=== PATIENT | female | born 1945 | race Caucasian/White ===

== ENCOUNTER → 2023-09-21 10:04 | Outpatient (REF) | payer MEDICARE, BC, SELFPAY | LOC: RAD 10:04 | PROVIDERS: ATTENDING PHYSICIAN Obstetrics & Gynecology; FAMILY PHYSICIAN Internal Medicine | DX: Z13.820 Encounter for screening for osteoporosis (principal); M81.0 Age-related osteoporosis without current pathological fracture | CPT/HCPCS: 77080 ==

== ENCOUNTER → 2023-10-14 11:42 | Outpatient (REF) | payer MEDICARE, BC, SELFPAY | LOC: WDC 11:42 | PROVIDERS: ATTENDING PHYSICIAN Obstetrics & Gynecology; FAMILY PHYSICIAN Internal Medicine | DX: Z12.31 Encounter for screening mammogram for malignant neoplasm of breast (principal) | CPT/HCPCS: 77063; 77067 ==

== ENCOUNTER → 2023-10-24 09:47 | Outpatient (REF) | payer MEDICARE, BC, SELFPAY | LOC: WDC 09:47 | PROVIDERS: ATTENDING PHYSICIAN Obstetrics & Gynecology; FAMILY PHYSICIAN Internal Medicine | DX: R92.8 Other abnormal and inconclusive findings on diagnostic imaging of breast (principal) | CPT/HCPCS: 77065 ==

== ENCOUNTER → 2023-10-28 06:32 | Outpatient (REF) | payer MEDICARE, BC, SELFPAY ==
--- NOTE | 2023-10-28 13:15 | OID.BR.INTR ---
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
- -
Date of Contact: 10/28/23
Met with patient. Patient given written information on navigator services and support services available at [facility]. Will follow up as needed per protocol.
== END ==
LOC: WDC 06:32
PROVIDERS: ATTENDING PHYSICIAN Obstetrics & Gynecology; FAMILY PHYSICIAN Internal Medicine
DX: R92.1 Mammographic calcification found on diagnostic imaging of breast (principal)
CPT/HCPCS: 88305; 19081; 76098; A4648

== ENCOUNTER → 2023-11-07 10:07 | Outpatient (REF) | payer MEDICARE, BC, SELFPAY | LOC: HWRAD 10:07 | PROVIDERS: ATTENDING PHYSICIAN Obstetrics & Gynecology; FAMILY PHYSICIAN Internal Medicine | DX: R10.2 Pelvic and perineal pain (principal) | CPT/HCPCS: 76830; 76856 ==

== ENCOUNTER → 2024-02-01 11:02 | Outpatient (REF) | payer MEDICARE, BC, SELFPAY ==
[2024-02-01 11:30] LABS: % Basophils 1.2 % (0-2); % Eosinophils 4.3 % (0-6); % Immature Granulocytes 0.2 % (0-0.5); % Lymphocytes 34.6 % (20.5-51.1); % Monocytes 9.3 % (1.7-9.3); % Neutrophils 50.4 % (42.2-75.2); Absolute Basophils 0.1 10^3/uL (0-0.2); Absolute Eosinophils 0.2 10^3/uL (0-0.7); Absolute Lymphocytes 1.7 10^3/uL (1.2-3.4); Absolute Monocytes 0.5 10^3/uL (0.1-0.6); Absolute Neutrophils 2.5 10^3/uL (1.4-6.5); Hematocrit 39.4 % (37.0-47.0); Hemoglobin 12.6 g/dL (12.0-16.0); Mean Corpuscular Hgb 30.7 pg (27.0-31.0); Mean Corpuscular Volume 96.1 fL (81.0-99.0); Mean Platelet Volume 9.2 fL (7.4-10.4); Nucleated Red Blood Cells % 0 %; Platelet Count 295 10^3/uL (130-400); Red Cell Dist. Width 13.2 % (11.5-14.5); White Blood Cell Count 4.9 10^3/uL (4.8-10.8)
[2024-02-01 11:36] LABS: Urine Albumin Negative (Neg - Trace); Urine Bilirubin Negative (Negative); Urine Character Clear (Clear); Urine Color Yellow; Urine Glucose Negative (Negative); Urine Ketone Negative (Negative); Urine Leukocyte Trace (Negative); Urine Nitrite Negative (Negative); Urine Occult Blood Negative (Negative); Urine Urobilinogen Negative (Neg - 1+)
[2024-02-01 11:58] LABS: Urine Squamous Cell 16-20 /LPF (Few)
[2024-02-01 12:00] LABS: Urine Red Blood Cell 0-2 /HPF (0-2); Urine White Cell 0-2 /HPF (0-5)
[2024-02-01 12:30] LABS: ALT (SGPT) 23 U/L (0-35); AST (SGOT) 32 U/L (14-36); Albumin 4.5 g/dl (3.5-5.0); Alkaline Phosphatase 60 U/L (38-126); Blood Urea Nitrogen 14 mg/dl (7-17); Calcium 9.5 mg/dl (8.4-10.2); Carbon Dioxide 27 mmol/L (22-30); Chloride 102 mmol/L (98-107); Glucose 91 mg/dl (70-99); HDL Cholesterol 63 mg/dl; LDL Cholesterol, Calculated 84 mg/dl; Potassium 4.2 mmol/L (3.5-5.1); Sodium 137 mmol/L (135-145); Total Bilirubin 0.4 mg/dl (0.2-1.3); Total Cholesterol 168 mg/dl (50-199); Total Protein 6.8 g/dl (6.3-8.2); Triglyceride 108 mg/dl (10-149); Very Low Density Lipoprotein 21 mg/dl (0-30); eGFR > 60.00
[2024-02-01 12:50] LABS: TSH 1.37 uIU/ml (0.47-4.68)
== END ==
LOC: REG 11:02
PROVIDERS: ATTENDING PHYSICIAN Internal Medicine
DX: E78.00 Pure hypercholesterolemia, unspecified (principal); M16.0 Bilateral primary osteoarthritis of hip; F41.8 Other specified anxiety disorders; R20.0 Anesthesia of skin; K58.1 Irritable bowel syndrome with constipation; E55.9 Vitamin D deficiency, unspecified; Z00.00 Encounter for general adult medical examination without abnormal findings
CPT/HCPCS: 36415; 80053; 80061; 81003; 81015; 82306; 84443; 85025

== ENCOUNTER → 2024-02-10 06:31 | Day surgery (SDC) | payer MEDICARE, BC, SELFPAY | LOC: GI 06:31 | PROVIDERS: ATTENDING PHYSICIAN Internal Medicine Gastroenterology | DX: Z12.11 Encounter for screening for malignant neoplasm of colon (principal); Z86.010 Personal history of colon polyps; D12.0 Benign neoplasm of cecum; D12.2 Benign neoplasm of ascending colon; D12.4 Benign neoplasm of descending colon | CPT/HCPCS: 45385; 88305 ==

== ENCOUNTER → 2024-03-09 17:45 | Outpatient (REF) | payer MEDICARE, BC, SELFPAY | LOC: RAD 17:45 | PROVIDERS: ATTENDING PHYSICIAN Podiatrist; FAMILY PHYSICIAN Internal Medicine | DX: M72.2 Plantar fascial fibromatosis (principal) | CPT/HCPCS: 73630 ==

== ENCOUNTER → 2024-08-08 14:02 | Outpatient (REF) | payer MEDICARE, BC, SELFPAY | LOC: RAD 14:02 | PROVIDERS: ATTENDING PHYSICIAN Physician Assistant | DX: R29.898 Other symptoms and signs involving the musculoskeletal system (principal); R20.2 Paresthesia of skin | CPT/HCPCS: 72110 ==

== ENCOUNTER → 2024-09-03 14:17 | Outpatient (REF) | payer MEDICARE, BC, SELFPAY | LOC: RAD 14:17 | PROVIDERS: ATTENDING PHYSICIAN Physician Assistant; FAMILY PHYSICIAN Internal Medicine | DX: R29.898 Other symptoms and signs involving the musculoskeletal system (principal); R20.2 Paresthesia of skin | CPT/HCPCS: 93922; 93925 ==

== ENCOUNTER → 2024-10-18 12:41 | Outpatient (REF) | payer MEDICARE, BC, SELFPAY | LOC: WDC 12:41 | PROVIDERS: ATTENDING PHYSICIAN Nurse Practitioner Family; FAMILY PHYSICIAN Internal Medicine | DX: Z12.31 Encounter for screening mammogram for malignant neoplasm of breast (principal) | CPT/HCPCS: 77063; 77067 ==

== ENCOUNTER → 2024-11-06 17:24 | Outpatient (REF) | payer MEDICARE, BC, SELFPAY | LOC: RAD 17:24 | PROVIDERS: ATTENDING PHYSICIAN Internal Medicine | DX: J45.41 Moderate persistent asthma with (acute) exacerbation (principal) | CPT/HCPCS: 71046 ==

== ENCOUNTER → 2024-11-15 13:00 | Outpatient (REF) | payer MEDICARE, BC, SELFPAY | LOC: HWEVLT 13:00 | PROVIDERS: ATTENDING PHYSICIAN Radiology Diagnostic Radiology | DX: I83.893 Varicose veins of bilateral lower extremities with other complications (principal) | CPT/HCPCS: 93970 ==

== ENCOUNTER 2025-01-09 06:59 | Day surgery (SDC) | payer MEDICARE, BC, SELFPAY ==
[2024-12-20 11:14] LABS: Hematocrit 37.1 % (37.0-47.0); Hemoglobin 12.4 g/dL (12.0-16.0); Mean Corp Hgb Conc. 33.4 g/dL (33.0-37.0); Mean Corpuscular Hgb 31.7 pg (27.0-31.0); Mean Corpuscular Volume 94.9 fL (81.0-99.0); Mean Platelet Volume 9.2 fL (7.4-10.4); Platelet Count 311 10^3/uL (130-400); Red Blood Cell Count 3.91 10^6/uL (4.20-5.40); White Blood Cell Count 4.1 10^3/uL (4.8-10.8)
[2024-12-20 11:25] LABS: ALT (SGPT) 21 U/L (0-35); AST (SGOT) 26 U/L (14-36); Albumin 4.2 g/dl (3.5-5.0); Alkaline Phosphatase 49 U/L (38-126); Blood Urea Nitrogen 12 mg/dl (7-17); Calcium 9.7 mg/dl (8.4-10.2); Carbon Dioxide 31 mmol/L (22-30); Chloride 105 mmol/L (98-107); Glucose 71 mg/dl (70-99); Potassium 3.8 mmol/L (3.5-5.1); Sodium 143 mmol/L (135-145); Total Bilirubin 0.4 mg/dl (0.2-1.3); Total Protein 6.7 g/dl (6.3-8.2); eGFR > 60.00
[2024-12-20 12:36] VITALS: BMI 25.9
[2024-12-20 13:19] LABS: Glycohemoglobin (HgbA1c) 5.9 % (4.0-5.6)
[2024-12-20 15:07] VITALS: BMI 25.9
--- NOTE | 2024-12-20 15:45 | CM ---
CM reviewed medical records. CM spoke with patient via phone. CM confirmed demographics. Patient lives independently with . Patient confirmed that she does not have a history of VN, SNF or DME. Patient confirmed that she has the patient
education list for required DME. Patient plans to stay overnight. CM encouraged patient to make an outpatient PT appointment at her chosen center on 01/11.
Patient would be agreeable to [facility] if needed on discharge. CM reinforced that patient discharge plan will be determined on POD #1.
CM encouraged hydration and bowel regimen pre-operatively.
CM provided CM contact information and will remain available as needed.
PLAN: home with outpatient PT.
--- NOTE | 2024-12-28 17:21 | CM ---
CM spoke with patient. SHe has multiple questions regarding her DME. CM discussed options.
Patient stated that she would like to make an appointment for outpatient PT at [facility] and is unable to make an appointment in time. CM emailed Holley Flores to assist patient with making an appointment.
--- NOTE | 2025-01-03 14:10 | CM ---
CM spoke with patient and reeducated on discharge plan. CM reinforced that patient will have outpatient PT after discharge and plan is NOT for home care. Patient understood and did not have further questions at this time.
[2025-01-09] VITALS (17 sets, daily range): BP systolic 94–149; BP diastolic 48–85; PULSE 82–87; O2SAT 99–100
[2025-01-09] MEDS: CELEBREX 200 MG PO (07:40)
[2025-01-09] MEDS: TYLENOL 650 MG PO ×4 (07:40→21:12)
[2025-01-09] MEDS: NORMOSOL-R/PLASMALYTE-A 1000 IV ×2 (08:01→11:32)
--- NOTE | 2025-01-09 09:08 | W.PN.ORTHO ---
Today's Communication / Plan
-
d/c when stable
Assessment
.
Distal Motor Intact: Yes
Dressing:
Clean, dry and intact.
Assessment:
Asthma-incentive spirometry-monitor O2 sats
Anxiety
Insomnia
-gabapentinat hs
-home benzo
Plan
.
Surgery / Date: L CHARLY 01/09/25
DVT Prophylaxis: Aspirin
Activity:
Out of bed.
PT/OT
Vital Signs and Labs
.
Vital Signs and Labs:
Lab Results
12/20/24 10:39
12/20/24 10:39
Temp Pulse Resp BP Pulse Ox
97.9 F 68 16 149/73 100
01/09/25 07:33 01/09/25 07:33 01/09/25 07:33 01/09/25 07:33 01/09/25 07:33
--- NOTE | 2025-01-09 09:36 | W.DS.TRANS ---
DC Summary - Linux Server Engineer
-
Discharge Instructions:
Sleep Apnea Risk Low
Discharge Diagnosis/Procedures L CHARLY 01/09/25--PSR
Diet As tolerated
Activity With Walker
Additional Activity Adequate hydration, minimize Oxy and wear TEDs
stockings to prevent low blood pressure/
dizziness
Driving Restrictions No driving
Bathing Restrictions OK to Shower
Other Services PT
Instructions:
Stand-Alone Forms: Total Hip/Knee Replacement D/C
Changes to Home Medications: Yes
Discharge Medications:
DC Medications w/original date entered in [employer]
clobetasol-emollient 0.05 % topical cream 15 gm TP BID PRN Rash 12/26/14
simvastatin 20 mg tablet 20 mg PO QPM 12/27/14
clonazepam 0.5 mg tablet 0.25 mg PO PRN PRN Insomnia 12/19/24
hydrocortisone 2.5 % lotion 1 applic topical PRN PRN Rash 12/19/24
sequwafy-xifn-abps 8 mg-folic 400 mcg-K 50 mcg-lutein 300 mcg tablet (Centrum Silver Women) 2 tab PO DAILY 12/19/24
celecoxib 200 mg capsule 200 mg PO DAILY Anti-inflammatory #14 caps 12/20/24
dexamethasone 4 mg tablet 4 mg PO BID inflammation #6 tabs 12/20/24
famotidine 20 mg tablet 20 mg PO HS GI prophylaxis #30 tabs 12/20/24
gabapentin 300 mg capsule 300 mg PO HS sleep/pain #10 caps 12/20/24
mupirocin 2 % topical ointment 1 applic topical BID infection prevention #1 tube 12/20/24
ondansetron 4 mg disintegrating tablet 4 mg PO Q6H PRN n/v #20 tabs 12/20/24
oxycodone 5 mg tablet 5 mg PO Q6H PRN 1 tab moderate pain, 2 tabs severe pain #30 tabs 12/20/24
acetaminophen 500 mg capsule 1,000 mg (2 x 500 mg) PO QID #0 caps 01/09/25
aspirin 325 mg tablet 325 mg PO DAILY blood clot prevention #1 tab 01/09/25
docusate sodium 100 mg capsule (Colace) 100 mg PO BID stool softner #1 cap 01/09/25
magnesium hydroxide 400 mg/5 mL oral suspension (Milk of Magnesia) 30 ml PO HS PRN constipation #1 mL 01/09/25
sennosides 8.6 mg tablet (Senokot) 17.2 mg (2 x 8.6 mg) PO BID laxative #2 tabs 01/09/25
Home Medication Changes
celecoxib 200 mg capsule 200 mg PO DAILY Anti-inflammatory #14 caps 12/20/24
dexamethasone 4 mg tablet 4 mg PO BID inflammation #6 tabs 12/20/24
famotidine 20 mg tablet 20 mg PO HS GI prophylaxis #30 tabs 12/20/24
gabapentin 300 mg capsule 300 mg PO HS sleep/pain #10 caps 12/20/24
mupirocin 2 % topical ointment 1 applic topical BID infection prevention #1 tube 12/20/24
ondansetron 4 mg disintegrating tablet 4 mg PO Q6H PRN n/v #20 tabs 12/20/24
oxycodone 5 mg tablet 5 mg PO Q6H PRN 1 tab moderate pain, 2 tabs severe pain #30 tabs 12/20/24
acetaminophen 500 mg capsule 1,000 mg (2 x 500 mg) PO QID #0 caps 01/09/25
aspirin 325 mg tablet 325 mg PO DAILY blood clot prevention #1 tab 01/09/25
docusate sodium 100 mg capsule (Colace) 100 mg PO BID stool softner #1 cap 01/09/25
magnesium hydroxide 400 mg/5 mL oral suspension (Milk of Magnesia) 30 ml PO HS PRN constipation #1 mL 01/09/25
sennosides 8.6 mg tablet (Senokot) 17.2 mg (2 x 8.6 mg) PO BID laxative #2 tabs 01/09/25
Pending Results: No
[2025-01-09] MEDS: ZOFRAN 4 MG IV (11:33)
[2025-01-09] MEDS: ROXICODONE 5 MG PO ×2 (11:59→17:41)
--- NOTE | 2025-01-09 15:01 | PTCARENOTE ---
Pt arrived to [facility] at 1223 from PACU in a bed. Pt has a left hip primaseal dressing that is C/D/I. Admission questions answered. Bed locked and in lowest position. Call pastor within reach. Care ongoing.
[2025-01-09] MEDS: ANCEF 5 IV (15:41)
[2025-01-09] MEDS: ASPIRIN 325 MG PO (17:36)
[2025-01-09] MEDS: LIPITOR 10 MG PO (17:36)
[2025-01-09] MEDS: BACTROBAN 2% OINTMENT 1 APPLIC NASAL (21:12)
[2025-01-09] MEDS: COLACE 100 MG PO (21:12)
[2025-01-09] MEDS: SENOKOT 17.2 MG PO (21:12)
[2025-01-09] MEDS: PEPCID 20 MG PO (21:13)
[2025-01-09] MEDS: DECADRON 4 MG IV (21:13)
[2025-01-09] MEDS: NEURONTIN 300 MG PO (21:13)
[2025-01-09] MEDS: TORADOL 15 MG IV (21:13)
[2025-01-10] MEDS: TYLENOL 650 MG PO ×2 (00:53→07:38)
[2025-01-10] MEDS: ANCEF 5 IV (00:54)
[2025-01-10] MEDS: KLONOPIN 0.25 MG PO (00:54)
[2025-01-10 03:00] VITALS: BP 122/62
[2025-01-10] MEDS: TYLENOL PO (05:07)
[2025-01-10 07:15] VITALS: BP 127/62
[2025-01-10] MEDS: SENOKOT 17.2 MG PO (07:38)
[2025-01-10] MEDS: COLACE 100 MG PO (07:38)
[2025-01-10] MEDS: CELEBREX 200 MG PO (07:38)
[2025-01-10] MEDS: DECADRON 4 MG IV (07:41)
[2025-01-10] MEDS: TORADOL 15 MG IV (07:42)
[2025-01-10] MEDS: ASPIRIN 325 MG PO (07:43)
[2025-01-10 09:00] VITALS: BP 126/57; PULSE 69; O2SAT 99
--- NOTE | 2025-01-10 10:03 | W.PN.ORTHO ---
Today's Communication / Plan
-
d/c
Assessment
.
Distal Motor Intact: Yes
Dressing:
Clean, dry and intact.
Assessment:
Asthma-incentive spirometry-O2 sats stable RA
Anxiety
Insomnia
-gabapentin at hs
-home benzo
*Prevention of post-op complications re orthostasis and constipation/ileus --discussed and outlined in d/c instructions: TEDs stockings, minimizing opioid, adequate hydration and adhering to bowel regimen*
Plan
.
Surgery / Date: L CHARLY 01/09/25
DVT Prophylaxis: Aspirin
Activity:
Out of bed.
PT/OT
Discharge Plan: Home w/ Outpatient PT
Subjective
.
.:
Patient resting comfortably.
Vital Signs and Labs
.
Vital Signs and Labs:
Lab Results
12/20/24 10:39
12/20/24 10:39
Temp Pulse Resp BP Pulse Ox
98 F 69 16 127/62 95
01/10/25 07:15 01/10/25 07:15 01/10/25 07:15 01/10/25 07:15 01/10/25 07:15
Non-invasive Hgb result: 11.4
Physical Exam
-
HEENT: No pallor, cyanosis, or jaundice. Throat clear.
NECK: Supple. No JVD.
RESPIRATORY: Lungs clear to auscultation.
CVS: S1, S2 normal. RRR.� No murmur, rub or gallop.
ABDOMEN: Soft, non-tender. No distension. BS+/normal.
EXTREMITIES: strength equal, no calf pain with palpation
AGRICULTURE CONSULTANT: AOx3. No focal deficits. 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
[2025-01-10 10:13] VITALS: BP 120/59; PULSE 70; O2SAT 99
[2025-01-10 11:15] VITALS: BP 127/54
== END 2025-01-10 12:13 | disposition home or self-care (01) ==
LOC: SDS 06:59
PROVIDERS: ATTENDING PHYSICIAN Orthopaedic Surgery; FAMILY PHYSICIAN Internal Medicine; OTHER PHYSICIAN Physician Assistant Medical
DX: M16.12 Unilateral primary osteoarthritis, left hip (principal)
CPT/HCPCS: 27130; 36415; 73502; 80053; 83036; 85027; 87070; 93005; 97110; 97116; 97162; 97167; 97530; 97535; C1713; C1776

== ENCOUNTER 2025-01-18 15:02 | Outpatient (RCR) | payer MEDICARE, BC, SELFPAY | END 2025-01-18 23:59 | disposition home or self-care (01) | LOC: RPT 15:02 | PROVIDERS: ATTENDING PHYSICIAN Orthopaedic Surgery; FAMILY PHYSICIAN Internal Medicine | DX: Z47.1 Aftercare following joint replacement surgery (principal); Z96.642 Presence of left artificial hip joint; Z73.6 Limitation of activities due to disability | CPT/HCPCS: 97110; 97140; 97161 ==

== ENCOUNTER 2025-02-18 14:31 | Outpatient (RCR) | payer MEDICARE, BC, SELFPAY | END 2025-02-18 23:59 | disposition home or self-care (01) | LOC: RPT 14:31 | PROVIDERS: ATTENDING PHYSICIAN Orthopaedic Surgery; FAMILY PHYSICIAN Internal Medicine | DX: Z47.1 Aftercare following joint replacement surgery (principal); Z96.642 Presence of left artificial hip joint; Z73.6 Limitation of activities due to disability; R26.2 Difficulty in walking, not elsewhere classified; M62.81 Muscle weakness (generalized); M16.0 Bilateral primary osteoarthritis of hip; M25.552 Pain in left hip | CPT/HCPCS: 97010; 97110; 97116; 97530 ==

== ENCOUNTER 2025-03-21 14:14 | Outpatient (RCR) | payer MEDICARE, BC, SELFPAY | END 2025-03-21 23:59 | disposition home or self-care (01) | LOC: RPT 14:14 | PROVIDERS: ATTENDING PHYSICIAN Orthopaedic Surgery; FAMILY PHYSICIAN Internal Medicine | DX: Z47.1 Aftercare following joint replacement surgery (principal); Z73.6 Limitation of activities due to disability; Z96.642 Presence of left artificial hip joint; R26.2 Difficulty in walking, not elsewhere classified; M62.81 Muscle weakness (generalized); M16.0 Bilateral primary osteoarthritis of hip; M25.552 Pain in left hip | CPT/HCPCS: 97010; 97110; 97140; 97530 ==

== ENCOUNTER 2025-04-15 14:06 | Outpatient (RCR) | payer MEDICARE, BC, SELFPAY | END 2025-04-15 23:59 | disposition home or self-care (01) | LOC: RPT 14:06 | PROVIDERS: ATTENDING PHYSICIAN Orthopaedic Surgery; FAMILY PHYSICIAN Internal Medicine | DX: Z47.1 Aftercare following joint replacement surgery (principal); Z73.6 Limitation of activities due to disability; M62.81 Muscle weakness (generalized); R26.2 Difficulty in walking, not elsewhere classified; M25.552 Pain in left hip; M16.0 Bilateral primary osteoarthritis of hip; Z96.642 Presence of left artificial hip joint | CPT/HCPCS: 97110; 97140; 97530 ==

== ENCOUNTER 2025-05-01 08:00 | Outpatient (RCR) | payer MEDICARE, BC, SELFPAY | END 2025-05-02 23:59 | disposition home or self-care (01) | LOC: RPT 08:00 | PROVIDERS: ATTENDING PHYSICIAN Orthopaedic Surgery; FAMILY PHYSICIAN Internal Medicine | DX: Z47.1 Aftercare following joint replacement surgery (principal); Z73.6 Limitation of activities due to disability; R26.2 Difficulty in walking, not elsewhere classified; M62.81 Muscle weakness (generalized); M16.0 Bilateral primary osteoarthritis of hip; M25.552 Pain in left hip; Z96.642 Presence of left artificial hip joint | CPT/HCPCS: 97010; 97110; 97140 ==

== ENCOUNTER 2025-05-28 09:18 | Outpatient (RCR) | payer MEDICARE, BC, SELFPAY | END 2025-05-28 12:44 | disposition home or self-care (01) | LOC: RPT 09:18 | PROVIDERS: ATTENDING PHYSICIAN Orthopaedic Surgery; FAMILY PHYSICIAN Internal Medicine | DX: Z47.1 Aftercare following joint replacement surgery (principal); Z73.6 Limitation of activities due to disability; R26.2 Difficulty in walking, not elsewhere classified; M62.81 Muscle weakness (generalized); M16.0 Bilateral primary osteoarthritis of hip; M25.552 Pain in left hip; Z96.642 Presence of left artificial hip joint | CPT/HCPCS: 97110 ==

== ENCOUNTER → 2025-05-31 11:29 | Outpatient (REF) | payer MEDICARE, BC, SELFPAY ==
[2025-05-31 12:30] LABS: Hematocrit 36.8 % (37.0-47.0); Hemoglobin 11.8 g/dL (12.0-16.0); Mean Corp Hgb Conc. 32.1 g/dL (33.0-37.0); Mean Corpuscular Volume 93.2 fL (81.0-99.0); Nucleated Red Blood Cells % 0 %; Platelet Count 307 10^3/uL (130-400); Red Cell Dist. Width 14.0 % (11.5-14.5)
[2025-05-31 12:31] LABS: Urine Character Clear (Clear)
[2025-05-31 12:49] LABS: Urine Red Blood Cell 0-2 /HPF (0-2); Urine White Cell 0-2 /HPF (0-5)
[2025-05-31 13:26] LABS: ALT (SGPT) 24 U/L (0-35); AST (SGOT) 28 U/L (14-36); Albumin 4.6 g/dl (3.5-5.0); Alkaline Phosphatase 61 U/L (38-126); Blood Urea Nitrogen 16 mg/dl (7-17); Calcium 9.2 mg/dl (8.4-10.2); Carbon Dioxide 30 mmol/L (22-30); Chloride 102 mmol/L (98-107); Glucose 92 mg/dl (70-99); HDL Cholesterol 61 mg/dl; LDL Cholesterol, Calculated 95 mg/dl; Potassium 4.3 mmol/L (3.5-5.1); Sodium 138 mmol/L (135-145); Total Protein 7.0 g/dl (6.3-8.2); Very Low Density Lipoprotein 24 mg/dl (0-30); eGFR > 60.00
[2025-05-31 13:35] LABS: Vitamin D, 25-OH*** 63.1 ng/mL (30-80)
== END ==
LOC: REG 11:29
PROVIDERS: ATTENDING PHYSICIAN Internal Medicine
DX: Z23 Encounter for immunization (principal); E78.00 Pure hypercholesterolemia, unspecified; E04.1 Nontoxic single thyroid nodule; E55.9 Vitamin D deficiency, unspecified; Z00.00 Encounter for general adult medical examination without abnormal findings
CPT/HCPCS: 36415; 80053; 80061; 81003; 81015; 82306; 84443; 85025

== ENCOUNTER → 2025-06-11 11:13 | Outpatient (REF) | payer MEDICARE, BC, SELFPAY | LOC: RAD 11:13 | PROVIDERS: ATTENDING PHYSICIAN Internal Medicine | DX: E04.1 Nontoxic single thyroid nodule (principal) | CPT/HCPCS: 76536 ==